=== PATIENT | male | born 2005 | race Caucasian/White ===

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

== ENCOUNTER 2025-04-14 15:37 | Inpatient (IN) | payer MEDICAID, SELFPAY ==
--- NOTE | ~2025-04-14 | XR_ITS ---
EXAMINATION: XR FOOT, RIGHT CLINICAL INFORMATION: pain, injury COMPARISON: None available. TECHNIQUE: AP, lateral, and oblique views of the right foot. FINDINGS: There is a defect in the soft tissues dorsal and medial to the first metatarsal head. There is a bandage overlying this region. There is debris in this region. No definite fracture is identified. Defect extends down to bone at the margin of the MTP joint. No other abnormalities are seen. XR/XR foot RT min 3V IMPRESSION: There is soft tissue defect medial to the first metatarsal head. Defect extends down to the bone and may or may not violate the joint capsule. Electronically signed by: Moses Beyer MD 04/14/2025 04:22 PM EDT
--- NOTE | ~2025-04-14 | XR_ITS ---
CLINICAL HISTORY: pre-op 1 view chest x-ray Comparison: None provided Findings: No consolidation or effusion. Heart size is normal. No acute fracture. IMPRESSION: 1. No acute findings. This document has been electronically signed by: Neha Florez MD on 04/14/2025 19:03:51
--- NOTE | ~2025-04-14 | XR_ITS ---
EXAMINATION: XR ANKLE, CLINICAL INFORMATION: pain, injury COMPARISON: None available. TECHNIQUE: AP, lateral, and mortise views lower extremity joint, ankle. FINDINGS: Ankle mortise is congruent. There is no widening of the syndesmosis. Talar dome is intact. There are no calcaneal enthesophytes. There is a corticated ossification inferior to the lateral malleolus and another inferior to the medial malleolus.. XR/XR ankle RT min 3V IMPRESSION: Unremarkable ankle x-ray. Suspected accessory ossification centers inferior to both malleoli. Electronically signed by: Moess Beyer MD 04/14/2025 04:26 PM EDT
--- NOTE | ~2025-04-14 | XR_ITS ---
EXAMINATION: XR KNEE, RIGHT CLINICAL INFORMATION: pain, injury COMPARISON: None available. TECHNIQUE: Four views of the right knee. FINDINGS: Joint spaces are maintained. There is no joint effusion. There are no degenerative changes. Small rounded metallic foreign body projects in the anterior lateral soft tissues of the proximal lower leg XR/XR knee RT 3V IMPRESSION: Round metallic foreign body in the anterolateral right lower leg. Electronically signed by: Moses Beyer MD 04/14/2025 04:24 PM EDT
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
[2025-04-14 15:42] VITALS: BP 141/94; PULSE 70; TEMP 36.8; O2SAT 98; BMI 14.7
[2025-04-14] MEDS: Lidocaine HCl 1 % MPF 5 ML VIAL 10 ML SUBCUT (17:42)
[2025-04-14 17:44] VITALS: BP 127/63; PULSE 64; RESP 14; TEMP 36.8; O2SAT 97
--- NOTE | 2025-04-14 18:20 | ECG_ITS ---
Test Reason : MED CLEARANCE Blood Pressure : */* mmHG Vent. Rate : 55 BPM Atrial Rate : 55 BPM P-R Int : 144 ms QRS Dur : 90 ms QT Int : 424 ms P-R-T Axes : 51 60 21 degrees QTcB Int : 405 ms Sinus bradycardia with sinus arrhythmia Otherwise normal ECG No previous ECGs available Referred By: Vandana Thompson Electronically Signed By: MARLYN RAMOS MD
[2025-04-14 18:57] VITALS: BP 127/63; PULSE 64; RESP 14; TEMP 36.8; O2SAT 97
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
[2025-04-14 19:16] VITALS: BMI 34.6
--- NOTE | 2025-04-14 19:24 | PHA.MEDREC ---
Addendum entered by Max Person RPh 04/14/25 19:28: Reviewed by [facility] Original Note: Pharmacy Consult ? Medication Reconciliation Pharmacy has completed the medication reconciliation. Patient states he doesn't take any medications.
[2025-04-14 19:37] VITALS: BP 106/49; PULSE 51; RESP 20; TEMP 36.8; O2SAT 99
[2025-04-14 20:00] LABS: MANUAL DIFF FLAG NO
[2025-04-14 20:02] LABS: Hematocrit 44.7 % (42.0-52.0); Hemoglobin 15.7 g/dl (14.0-18.0); Imm Gran Abs Auto 0.05 X10*3/uL (0.00-0.03); Imm Gran Pct Auto 0.4 % (0.0-0.4); Lymphocytes Absolute Auto 2.8 X10*3/uL (1.2-4.9); Mean Corpuscular HGB Conc 35.1 g/dl (31.0-36.0); Mean Corpuscular Hemoglobin 30.0 pg (27.0-33.0); Mean Corpuscular Volume 85.5 fL (80.0-98.0); NRBC Abs Auto 0.000 X10*3/uL (0.0-0.012); NRBC Pct Auto 0.0 /100WBC (0.0-0.2); Platelet Count 207 X10*3/uL (160-400); Red Blood Count 5.23 X10*6/uL (4.60-5.80); White Blood Count 13.7 X10*3/uL (4.8-10.8)
[2025-04-14] MEDS: oxyCODONE HCl Immed Release 5 MG TABLET PO (20:03)
[2025-04-14 20:18] LABS: Alanine Aminotransferase 33 U/L (0-40); Albumin Level 4.6 g/dL (3.5-5.0); Alkaline Phosphatase 59 U/L (39-117); Anion Gap 13 (12-20); Aspartate Amino Transferase 26 U/L (5-37); Blood Urea Nitrogen 6 mg/dL (9-16); Calcium 9.0 mg/dL (8.4-10.2); Carbon Dioxide 27 mmol/L (22-29); Chloride 106 mmol/L (96-108); Creatinine Clr Calc Pharmacy 203.8; Estimated Glomerular Filt Rate > 60; Potassium 3.7 mmol/L (3.3-5.1); Sodium 142 mmol/L (135-145); Total Protein 7.1 g/dL (6.5-8.0)
[2025-04-15] VITALS (11 sets, daily range): BP systolic 91–138; BP diastolic 36–85; PULSE 45–69; RESP 16–18; TEMP 36.2–36.7; O2SAT 96–99
[2025-04-15] MEDS: oxyCODONE HCl Immed Release 5 MG TABLET PO ×3 (00:34→23:00)
[2025-04-15] MEDS: 0.9 % Sodium Chloride Flush 3 ML SYRINGE IVFLUSH ×4 (00:35→20:27)
[2025-04-15 06:49] LABS: MANUAL DIFF FLAG NO
[2025-04-15 06:57] LABS: Hematocrit 45.8 % (42.0-52.0); Hemoglobin 15.2 g/dl (14.0-18.0); Imm Gran Abs Auto 0.05 X10*3/uL (0.00-0.03); Imm Gran Pct Auto 0.4 % (0.0-0.4); Lymphocytes Absolute Auto 3.2 X10*3/uL (1.2-4.9); Mean Corpuscular HGB Conc 33.2 g/dl (31.0-36.0); Mean Corpuscular Hemoglobin 29.3 pg (27.0-33.0); Mean Corpuscular Volume 88.2 fL (80.0-98.0); NRBC Abs Auto 0.000 X10*3/uL (0.0-0.012); NRBC Pct Auto 0.0 /100WBC (0.0-0.2); Platelet Count 181 X10*3/uL (160-400); Red Blood Count 5.19 X10*6/uL (4.60-5.80); White Blood Count 12.0 X10*3/uL (4.8-10.8)
[2025-04-15 07:50] LABS: Anion Gap 11 (12-20); Blood Urea Nitrogen 7 mg/dL (9-16); Calcium 8.7 mg/dL (8.4-10.2); Carbon Dioxide 26 mmol/L (22-29); Chloride 108 mmol/L (96-108); Creatinine Clr Calc Pharmacy 208.8; Estimated Glomerular Filt Rate > 60; Potassium 4.1 mmol/L (3.3-5.1); Sodium 141 mmol/L (135-145)
--- NOTE | 2025-04-15 09:45 | HO.ANESPROP2 ---
Documented by User: Samia Silverio NP 04/15/25 09:50 HPI - Anesthesia Eval Consult details Narrative: 20 yr old male for right foot I&D No recent illness No CP/SOB with moderate activity +Daily marijuana use PMFSH Active Problems Active Problems: All Active Problems (Updated 04/14/25 @ 19:44 by JENN Munoz) Skin loss with exposed bone (Acute) Family History Family history of problems with anesthesia: No Surgical History Surgical History (Updated 04/15/25 @ 14:56 by Kayli Stone RN) History of surgery History of Problems with Anesthesia: No Social History Social History Household Members: Family Housing: House Do you presently have visiting nurse or other home services: No Alcohol intake: never Patient Tobacco Use Status: Never used Tobacco service: No Meds Allergies Allergy/AdvReac Type Severity Reaction Status Date / Time No Known Allergies Allergy Verified 04/14/25 15:46 Active Medications: Current Medications Acetaminophen (Acetaminophen 325 Mg Tablet) 650 mg PO Q6H PRN PRN Reason: Pain, Mild 1-3,fever,headache Last Admin: 04/15/25 00:34 Dose: 650 mg Calcium Carbonate (Calcium Carbonate 750 Mg Tab.Chew) 750 mg PO Q4H PRN PRN Reason: Heartburn Hydromorphone HCl (Hydromorphone Hcl 0.5 Mg/0.5 Ml Syringe) 0.25 mg IVPUSH Q4H PRN; Protocol PRN Reason: Pain, Severe (Pain Scale 7-10) Vancomycin HCl 750 mg/ Sodium (Chloride) 265 mls @ 265 mls/hr IV Q8H SILVERIO Last Infusion: 04/15/25 06:03 Dose: Infused Magnesium Hydroxide (Milk Of Magnesia 30 Ml Oral.Susp) 30 ml PO DAILY PRN PRN Reason: Constipation Melatonin (Melatonin 3 Mg Tablet) 6 mg PO BEDTIME PRN PRN Reason: Insomnia Oxycodone HCl (Oxycodone Hcl Immed Release 5 Mg Tablet) 5 mg PO Q4H PRN PRN Reason: Pain, Moderate(Pain Scale 4-6) Last Admin: 04/15/25 00:34 Dose: 5 mg Pharmacy Consult (Consult Rx Vancomycin Dosing) 1 each MISCELLANE DAILY PRN PRN Reason: Consult order Sodium Chloride (0.9 % Sodium Chloride Flush 3 Ml Syringe) 3 ml IVFLUSH QSHIFT SILVERIO Last Admin: 04/15/25 08:50 Dose: 3 ml Home Medications ?Medication ?Instructions ?Recorded ?Confirmed ?Last Taken ?Type No Known Home Meds 04/14/25 04/14/25 Unknown History Exam Height,Weight and Vital Signs: Height 6 ft 4 in Weight 128.82 kg Last Vital Signs Temp 98.0 F 04/15/25 08:00 Pulse 54 04/15/25 08:00 Resp 18 04/15/25 08:00 BP 110/64 04/15/25 08:00 Pulse Ox 99 04/15/25 08:00 O2 Del Method Room Air 04/15/25 08:00 Pertinent Lab Results Pertinent Lab Results: Laboratory Tests 04/14/25 04/15/25 19:49 05:33 WBC 13.7 H 12.0 H RBC 5.23 5.19 Hgb 15.7 15.2 Hct 44.7 45.8 MCV 85.5 88.2 MCH 30.0 29.3 MCHC 35.1 33.2 RDW 13.1 13.0 Plt Count 207 181 MPV 11.2 12.2 Immature Gran % (Auto) 0.4 0.4 Neut % (Auto) 71.1 60.5 Lymph % (Auto) 20.0 26.8 Ellis % (Auto) 7.6 11.1 H Eos % (Auto) 0.5 0.9 Baso % (Auto) 0.4 0.3 Lymph # (Auto) 2.8 3.2 Ellis # (Auto) 1.0 1.3 H Eos # (Auto) 0.1 0.1 Baso # (Auto) 0.1 0.0 Abs Immat Gran (auto) 0.05 H 0.05 H Absolute Neuts (auto) 9.8 H 7.2 Absolute Nucleated RBC 0.000 0.000 Nucleated RBC % (auto) 0.0 0.0 Sodium 142 141 Potassium 3.7 D 4.1 Chloride 106 108 Carbon Dioxide 27 26 Anion Gap 13 11 L BUN 6 L 7 L Creatinine 0.84 0.82 Estim Creat Clear Calc 203.8 208.8 Estimated GFR > 60 > 60 Random Glucose 84 Fasting Glucose 85 Calcium 9.0 D 8.7 Total Bilirubin 0.6 AST 26 ALT 33 Alkaline Phosphatase 59 Total Protein 7.1 Albumin 4.6 Blood Type A Positive Antibody Screen NEGATIVE Airway Mallampati Class: II TM Dist: >3cm Neck ROM: Full Loose/Missing/Broken Teeth: No Assessment and Plan Final Anesthetic Review Family History of Problems with Anesthesia: No History of Problems with Anesthesia: No Documented by User: Hardeep Haro MD 04/15/25 17:19 [facility] Surgical History Surgical History (Updated 04/15/25 @ 14:56 by Kayli Stone RN) History of surgery Social History Social History Household Members: Family Housing: House Do you presently have visiting nurse or other home services: No Alcohol intake: never Patient Tobacco Use Status: Never used Tobacco service: No Meds Allergies Allergy/AdvReac Type Severity Reaction Status Date / Time No Known Allergies Allergy Verified 04/14/25 15:46 Home Medications ?Medication ?Instructions ?Recorded ?Confirmed ?Last Taken ?Type No Known Home Meds 04/14/25 04/14/25 Unknown History Assessment and Plan Assessment Anesthesia Assessment: Anesthesia Plan Discussed and Chart Reviewed Final Anesthetic Review NPO: Yes ASA Class: I Final Preanesthetic Review: No Changes in Pt Med Stat, Meds/Allgs Chart Reviewed, Consent Obtained/Reviewed and Anes Risks/Benef Reviewed Patient Risk: Low Procedure Risk: Low Anesthetic Plan Anesthetic Plan: GA Disposition: Standard PACU
--- NOTE | 2025-04-15 13:10 | HO.WOUND ---
Wound Consutl: Defer to Orthopedic Surgery Team 20yr old male admitted to [facility] on 04/14/25 - see H&P for detailed history. Wound consult placed for traumatic Right Foot injury. Chart review reveals patient is set for OR today with Orthopedic Surgery team - will defer to their service for topical recommendations. Will follow along for wound care d/c needs. Inpatient wound care nurse will continue to follow.
--- NOTE | 2025-04-15 13:42 | MHC.CM.PN ---
PG LIVES WITH FAMILY IS WORKING AND INDEPENDNTHAS OWN RIDE HOME DC PLAN HOME NO SERVICS
--- NOTE | 2025-04-15 17:24 | MHC.SHP ---
Pre-Procedural Eval Section A - 24 Hr Update-Section A only Date of Service: 04/15/25 The patient is an INPATIENT: Yes Changes since office visit: No Cold of Flu in the past 2 weeks, No New Medical Problems, No Changes in Medication and No Patient answered all questions The patient has been examined within 24 hours of the surgical procedure. The History & Physical has been completed within 30 days and I have reviewed it.: Yes Section B - Complete if H&P > 30 days Chief Complaint: open R first mtp joint Allergies: Allergies Allergy/AdvReac Type Severity Reaction Status Date / Time No Known Allergies Allergy Verified 04/14/25 15:46 Plan I have reviewed the history and physical and performed a pertinent physical examination on my patient. No changes have occurred unless specified. Time Spent With Patient Time: Total time managing care of this patient today ____ minutes.
--- NOTE | 2025-04-15 18:31 | PM.OP ---
Brief Operative Note Date of Service: 04/15/25 Pre-op diagnosis: Right 1st MTP traumatic arthrotomy and extensor tendon laceration Post-op diagnosis: same Procedure: Irrigation 1st MTP Extensor tendon repair Implants: none Surgeon: Luis Antonio Massey MD Anesthesia: GETA Was an Digital Pre Press Operator used for this Procedure?: No Estimated blood loss (mL): 20 IV fluids (mL): 500 Pathology: none sent Condition: stable Disposition: PACU
[2025-04-16 03:20] VITALS: BP 130/79; PULSE 60; RESP 18; TEMP 36.2; O2SAT 99
[2025-04-16] MEDS: oxyCODONE HCl Immed Release 5 MG TABLET PO ×3 (03:34→13:54)
[2025-04-16 06:05] LABS: MANUAL DIFF FLAG NO
[2025-04-16 06:23] LABS: Hematocrit 46.5 % (42.0-52.0); Hemoglobin 15.7 g/dl (14.0-18.0); Imm Gran Abs Auto 0.05 X10*3/uL (0.00-0.03); Imm Gran Pct Auto 0.4 % (0.0-0.4); Lymphocytes Absolute Auto 1.9 X10*3/uL (1.2-4.9); Mean Corpuscular HGB Conc 33.8 g/dl (31.0-36.0); Mean Corpuscular Hemoglobin 29.5 pg (27.0-33.0); Mean Corpuscular Volume 87.2 fL (80.0-98.0); NRBC Abs Auto 0.000 X10*3/uL (0.0-0.012); NRBC Pct Auto 0.0 /100WBC (0.0-0.2); Platelet Count 169 X10*3/uL (160-400); Red Blood Count 5.33 X10*6/uL (4.60-5.80); White Blood Count 11.8 X10*3/uL (4.8-10.8)
[2025-04-16 06:32] LABS: Anion Gap 16 (12-20); Blood Urea Nitrogen 7 mg/dL (9-16); Calcium 8.8 mg/dL (8.4-10.2); Carbon Dioxide 24 mmol/L (22-29); Chloride 105 mmol/L (96-108); Creatinine Clr Calc Pharmacy 228.3; Estimated Glomerular Filt Rate > 60; Potassium 3.6 mmol/L (3.3-5.1); Sodium 141 mmol/L (135-145)
[2025-04-16 07:26] VITALS: BP 125/78; PULSE 52; RESP 18; TEMP 36.8; O2SAT 96
[2025-04-16] MEDS: 0.9 % Sodium Chloride Flush 3 ML SYRINGE IVFLUSH ×3 (08:05→21:51)
--- NOTE | 2025-04-16 09:10 | HO.POSTANES ---
Post Anesthesia Evaluation Post Anesthesia Evaluation Date of Service: 04/16/25 Vital Signs: Vital Signs Temp Pulse Resp BP Pulse Ox O2 Del Method 04/16/25 07:26 98.3 F 52 18 125/78 96 Room Air 04/16/25 03:20 97.1 F 60 18 130/79 99 Room Air 04/15/25 23:15 97.6 F 56 18 129/77 98 Room Air Anesthesia: General Mental Status: Awake Pain Control: Satisfactory Nausea/Vomiting: None Hydration: Adequate Anesthesia-Related Issues: No Anes. Related Issues
--- NOTE | 2025-04-16 13:43 | PM.PNORT ---
Subjective Subjective Date of Service: 04/16/25 Interval history: POD1 s/p right foot irrigation 1st MTP and extensor tendon repair Patient is resting in bed comfortably No overnight events Pain is managed Right foot elevating on pillows No additional complaints Physical Exam Vital Signs: Vital Signs: Last Vital Signs Temp 98.3 F 04/16/25 07:26 Pulse 52 04/16/25 07:26 Resp 18 04/16/25 07:26 BP 125/78 04/16/25 07:26 Pulse Ox 96 04/16/25 07:26 O2 Del Method Room Air 04/16/25 07:26 BMI result Body Mass Index 34.6 Const: General: cooperative, healthy appearing and no acute distress Resp: Effort & Inspection: normal respiratory effort and able to speak in complete sentences Extrem: Other: Right foot splint is c/d/i. Able to move all digits. Sensation reportedly intact with some tingling on the plantar side of the foot near the heel. Capillary refill is brisk. Psych: Appearance: grossly normal Mental Status: mental status grossly normal Attitude: cooperative Procedures Date of Service Date of Service: 04/16/25 Progress Note: A&P Assessment and plan (1) Skin loss with exposed bone: Status: Acute Plan Continue pain mgmnt Keep dressing c/d/i Zhang loosened Wet to dry dressing changes BID -First dressing change to be performed this evening Dispo planning-Pain management and wound care Time Spent With Patient Time: Total time managing care of this patient today ____ minutes. Quality Stroke Does the patient have a stroke diagnosis?: No VTE Prior VTE?: No VTE Risk Level:: Surgical - moderate VTE Device Contraindication: N/A - Device Ordered VTE Drug Contraindication: Treatment Not Indicated
[2025-04-16 15:12] VITALS: BP 123/58; PULSE 51; RESP 16; TEMP 36.4; O2SAT 98
[2025-04-16 19:42] VITALS: BP 132/56; PULSE 72; RESP 18; TEMP 37; O2SAT 96
[2025-04-17 03:04] VITALS: BP 134/75; PULSE 71; RESP 18; TEMP 36.9; O2SAT 97
[2025-04-17 06:29] LABS: MANUAL DIFF FLAG NO
[2025-04-17 06:32] LABS: Hematocrit 43.3 % (42.0-52.0); Hemoglobin 15.3 g/dl (14.0-18.0); Imm Gran Abs Auto 0.04 X10*3/uL (0.00-0.03); Imm Gran Pct Auto 0.4 % (0.0-0.4); Lymphocytes Absolute Auto 2.3 X10*3/uL (1.2-4.9); Mean Corpuscular HGB Conc 35.3 g/dl (31.0-36.0); Mean Corpuscular Hemoglobin 30.2 pg (27.0-33.0); Mean Corpuscular Volume 85.6 fL (80.0-98.0); NRBC Abs Auto 0.000 X10*3/uL (0.0-0.012); NRBC Pct Auto 0.0 /100WBC (0.0-0.2); Platelet Count 184 X10*3/uL (160-400); Red Blood Count 5.06 X10*6/uL (4.60-5.80); White Blood Count 9.2 X10*3/uL (4.8-10.8)
[2025-04-17 06:54] LABS: Anion Gap 13 (12-20); Blood Urea Nitrogen 9 mg/dL (9-16); Calcium 9.4 mg/dL (8.4-10.2); Carbon Dioxide 26 mmol/L (22-29); Chloride 105 mmol/L (96-108); Creatinine Clr Calc Pharmacy 225.3; Estimated Glomerular Filt Rate > 60; Potassium 3.5 mmol/L (3.3-5.1); Sodium 140 mmol/L (135-145)
[2025-04-17 07:40] VITALS: BP 112/62; PULSE 50; RESP 18; TEMP 36.3; O2SAT 98
[2025-04-17] MEDS: 0.9 % Sodium Chloride Flush 3 ML SYRINGE IVFLUSH (08:08)
--- NOTE | 2025-04-17 09:10 | PM.PNORT ---
Subjective Subjective Date of Service: 04/17/25 Interval history: POD2 s/p right foot irrigation 1st MTP and extensor tendon repair Patient is resting in bed comfortably No overnight events Pain is managed Right foot elevating on pillows No additional complaints Physical Exam Vital Signs: Vital Signs: Last Vital Signs Temp 97.4 F 04/17/25 07:40 Pulse 50 04/17/25 07:40 Resp 18 04/17/25 07:40 BP 112/62 04/17/25 07:40 Pulse Ox 98 04/17/25 07:40 O2 Del Method Room Air 04/17/25 07:40 BMI result Body Mass Index 34.6 Const: General: cooperative, healthy appearing and no acute distress Resp: Effort & Inspection: normal respiratory effort and able to speak in complete sentences Extrem: Other: Right foot splint is c/d/i. Able to move all digits. Sensation reportedly intact with some tingling on the plantar side of the foot near the heel. Once dressing is removed, wound/surgery site appears clean and dry, there is good soft tissue coverage over all bones and joints. Sutures in place and intact. No cellulitis, drainage, or other evidence of infection noted. Capillary refill is brisk. Psych: Appearance: grossly normal Mental Status: mental status grossly normal Attitude: cooperative Procedures Date of Service Date of Service: 04/17/25 Progress Note: A&P Assessment and plan (1) Skin loss with exposed bone: Status: Acute Plan Continue pain mgmnt Keep dressing c/d/i Zhang loosened Dressing changed today Wet to dry dressing changes BID Upon discharge, patient will be responsible for b.i.d. wet-to-dry dressing changes -First dressing change to be performed this evening Patient will start on p.o. Keflex upon discharge x2 weeks Dispo planning-Pain management and wound care Time Spent With Patient Time: Total time managing care of this patient today ____ minutes. Quality Stroke Does the patient have a stroke diagnosis?: No VTE Prior VTE?: No VTE Risk Level:: Surgical - moderate VTE Device Contraindication: N/A - Device Ordered VTE Drug Contraindication: Treatment Not Indicated
--- NOTE | 2025-04-17 09:49 | PM.DS ---
DS: Providers Provider Date of Service: 04/17/25 Date of admission: 04/14/25 18:50 Date of discharge: 04/17/25 Primary care physician: [facility] Consults: 04/14/25 18:50 Consult to Case Management Routine Comment: 04/15/25 09:57 Consult to Wound Care Routine Reason for consultation: R foot road rash injury, pending I&D 04/15 DS: Diagnosis Discharge Diagnosis (1) Skin loss with exposed bone: Status: Acute DS: Summary Hospital Course Hospital Course: The patient underwent a successful irrigation and debridement of right 1st MTP joint, as well as right great toe extensor tendon repair, was transferred to PACU and then to the floor to recover. During their stay, their vitals were stable, afebrile at 97.4. Labs were unremarkable. Patient was also placed into a foot splint, this should remain in place whenever he is not doing dressing changes. Patient also received IV antibiotics while in the hospital, and we will be switched to p.o. Keflex 4 times a day upon discharge Patient may weightbear as tolerated on the right foot while wearing postop shoe, should not be weight-bearing without postop shoe Prior to discharge, his dressing was changed, incision clean dry and intact, new dressing applied. Patient should be doing twice daily wet-to-dry dressing changes while at home. If there are any concerns with the wound itself while at home, he should call our office for advice/sooner appointment. No showering. The plan is to be discharged Status at Discharge Cognitive/behavioral status at discharge: Stable for discharge Time Attestation Discharge Coordination Time (in mins): 30 Quality: Safe Use of Opioids Does Pt have an Active Cancer Diagnosis on the Problem List?: No Quality: Stroke Does the patient have a stroke diagnosis?: No Physical Exam Vital Signs: Vital Signs: Last Vital Signs Temp 97.4 F 04/17/25 07:40 Pulse 50 04/17/25 07:40 Resp 18 04/17/25 07:40 BP 112/62 04/17/25 07:40 Pulse Ox 98 04/17/25 07:40 O2 Del Method Room Air 04/17/25 07:40 BMI result Body Mass Index 34.6 Const: General: cooperative, healthy appearing and no acute distress Resp: Effort & Inspection: normal respiratory effort and able to speak in complete sentences Extrem: Other: Right foot splint is c/d/i. Able to move all digits. Sensation reportedly intact with some tingling on the plantar side of the foot near the heel. Once dressing is removed, wound/surgery site appears clean and dry, there is good soft tissue coverage over all bones and joints. Sutures in place and intact. No cellulitis, drainage, or other evidence of infection noted. Capillary refill is brisk. Psych: Appearance: grossly normal Mental Status: mental status grossly normal Attitude: cooperative DS: Data Data Completed and Pending Labs on day of discharge: Laboratory Results - last 24 hr 04/16/25 04/17/25 20:04 05:21 WBC 9.2 RBC 5.06 Hgb 15.3 Hct 43.3 MCV 85.6 MCH 30.2 MCHC 35.3 RDW 12.9 Plt Count 184 MPV 12.0 Immature Gran % (Auto) 0.4 Neut % (Auto) 60.8 Lymph % (Auto) 24.8 [place] % (Auto) 12.2 H Eos % (Auto) 1.4 Baso % (Auto) 0.4 Lymph # (Auto) 2.3 [place] # (Auto) 1.1 Eos # (Auto) 0.1 Baso # (Auto) 0.0 Abs Immat Gran (auto) 0.04 H Absolute Neuts (auto) 5.6 Absolute Nucleated RBC 0.000 Nucleated RBC % (auto) 0.0 Sodium 140 Potassium 3.5 Chloride 105 Carbon Dioxide 26 Anion Gap 13 BUN 9 Creatinine 0.76 Estim Creat Clear Calc 225.3 Estimated GFR > 60 Fasting Glucose 97 Calcium 9.4 D Random Vancomycin 10.5 L Discharge Plan Discharge Anticipated Discharge Date/Time: 04/17/25 09:48 Patient Disposition: Home, Self-Care Discharge Diagnosis: Traumatic arthrotomy of right 1st MTP joint, right great toe extensor tendon laceration Referrals: [facility] [facility] [Primary Care Provider, Medical] - 1 Week Discharge Medications: New acetaminophen 325 mg Tablet 650 mg PO Q6H PRN (Reason: Pain, Mild 1-3,Fever,Headache) 30 Days Qty: 240 0RF oxycodone 5 mg Tablet 5 mg PO Q4H PRN (Reason: Pain, Moderate(Pain Scale 4-6)) 3 Days Qty: 18 0RF Rx Instructions: Partial Fill upon patient request. cephalexin 500 mg capsule 500 mg PO QID 14 Days Qty: 56 0RF Rx Instructions: Please take antibiotic 4 times a day Always taken antibiotics with food No consuming alcohol while taking antibiotics Discharge Orders: Discharge Order (Routine); Ordered 04/17/25 Ordered By: Mal Rojas Activity on Discharge: Use Splints or Immobilizers Stand Alone Forms: Patient Portal Discharge page Print Language: Arabic Care Plan Goals: Restore normal function of right foot Health Concerns: Traumatic arthrotomy of right 1st MTP joint status post I and D Status post right great toe extensor tendon repair Plan of Treatment: Take p.o. Keflex 4 times a day for 2 weeks Always taken antibiotics with food No alcohol while on antibiotic therapy Remain in splint except for during dressing changes Change dressings, wet to dry, twice a day Weight-bearing as tolerated in postop shoe, no weight-bearing without postop shoe Follow-up with [facility] on 04/24/2025 at 09:45 with Tamica Meyers Assessment: Stable for discharge
--- NOTE | 2025-04-17 10:30 | MHC.CM.PN ---
PT TO DC HOME TODAY WITH NO SERVICES VIA PRIVATE TRANSPORT
[2025-04-17 11:26] VITALS: BP 140/69; PULSE 70; RESP 18; TEMP 36.6; O2SAT 96
--- NOTE | 2025-04-17 11:52 | PC.NURSE ---
Pt forgot bedside dressing supplies at bedside. Attempted to call pt at listed number, error messaged received that number was not in service.
--- NOTE | 2025-04-25 13:46 | P.OP_ITS ---
Operative Note Operative Note Date of Service: 04/15/25 Narrative: Date of Service: 04/15/25 Pre-op diagnosis: Right 1st MTP traumatic arthrotomy and extensor tendon laceration Post-op diagnosis: same Procedure: Irrigation 1st MTP Extensor tendon repair Implants: none Surgeon: Luis Antonio Massey MD Anesthesia: GETA Was an Thermodynamics Engineer used for this Procedure?: No Estimated blood loss (mL): 20 IV fluids (mL): 500 Pathology: none sent Condition: stable Disposition: PACU Procedure in detail: Patient was brought to the operating room placed supine on the operative table and prepped and draped in standard sterile fashion. A time-out was go to intubate per psych for procedure were surgeon IV antibiotics per we were administered. I began by examining the wound. He had a transverse open wound with skin loss over the 1st meta tarsal been . This was a clean wound. There was no debris. I explored it and over the anteromedial aspect the metatarsal phalangeal joint was violated. I used a knife to remove debris and explored the joint. It was clean and I irrigated copiously with saline. Once I felt that the wound was closed there was no viable capsular tissue to close I further irrigated the area over the metatarsal head. Once the wound was clean I examined the extensor tendon. This was partially torn with the lateral half intact. The extensor expansion was not repairable but I was able to place 340 Prolene sutures to repair the extensor tendon. This was a 6 strand repair and I felt comfortable that it was the mostly could be done to prevent worsening and hopefully allow this to fully heal. I then performed a small incision at the most lateral and medial aspect of the open wound and was able to bring healthy skin into the central area of skin loss. I had a proximate dime-sized area of subcutaneous tissue and felt that this would closed with simple wound care. The remainder of the wound I was able to cover with delayed primary closure. Prolene suture was used. I then placed a silver dressing over the open wound and a splint with the toe in a extended position. Sterile dressings had been applied prior to splint placement. Patient was then extubated brought to recovery room in stable condition. There were no known complications.
== END 2025-04-17 11:54 | disposition home or self-care (01) | DRG 317 ==
LOC: HO.ED 18:20 → HO.EDOVER 19:03 → HO.S3 04-15 00:57
PROVIDERS: Orthopaedic Surgery; Physician Assistant Medical; Emergency Provider Emergency Medicine Emergency Medical Services
PROC: 0LQV0ZZ Repair Right Foot Tendon, Open Approach (ICD-10-PCS; CPT 28208; principal; 2025-04-15 13:00)
DX: S96.121A Laceration of muscle and tendon of long extensor muscle of toe at ankle and foot level, right foot, initial encounter (principal); S91.301A Unspecified open wound, right foot, initial encounter; W20.8XXA Other cause of strike by thrown, projected or falling object, initial encounter; Z79.899 Other long term (current) drug therapy
CPT/HCPCS: 28208; 36415; 71045; 73562; 73610; 73630; 80048; 80053; 80202; 85025; 86850; 86900; 86901; 93005; 99221; 99285; J1171; J2003; J2704; J2795; J3010; J3374

== ENCOUNTER → 2025-04-14 15:45 | Outpatient (BNV) | payer MEDICAID, SELFPAY | PROVIDERS: Visit Provider Radiology Diagnostic Radiology | DX: S80.851A Superficial foreign body, right lower leg, initial encounter (principal); Z01.810 Encounter for preprocedural cardiovascular examination; M25.571 Pain in right ankle and joints of right foot | CPT/HCPCS: 71045; 73562; 73610; 73630 ==

== ENCOUNTER → 2025-04-14 18:20 | Outpatient (BNV) | payer MEDICAID, SELFPAY | PROVIDERS: Emergency Provider Emergency Medicine Emergency Medical Services; Visit Provider Internal Medicine Cardiovascular Disease | DX: I49.9 Cardiac arrhythmia, unspecified (principal); R00.1 Bradycardia, unspecified | CPT/HCPCS: 93010 ==

== ENCOUNTER → 2025-04-14 18:50 | Outpatient (BNV) | payer MEDICAID, SELFPAY | PROVIDERS: Emergency Provider Emergency Medicine Emergency Medical Services | DX: R29.898 Other symptoms and signs involving the musculoskeletal system (principal) | CPT/HCPCS: 99223 ==

== ENCOUNTER 2025-04-24 09:45 | Outpatient (AMB) | payer MEDICAID, SELFPAY ==
--- NOTE | 2025-04-24 09:58 | A.OFFVIS_ITS ---
Vital Signs 04/24/25 10:00 Height 6 ft 4 in Weight 280 lb BMI 34.1 Intake Visit Reasons: rt irrigation 1st MTP ext. tendon repair 04/15/25 NE Intake Note: Ricardo is a 20 year old male who presents today for a post op appointment status post right irrigation 1st metatarsophalangeal extensor tendon repair 04/15/25 NE. Patient reports he is not having pain at the moment. He is in a post op shoe. Accompanied by: Brother Allergies No Known Allergies Allergy (Verified 04/24/25 10:02) HPI HPI rt irrigation 1st MTP ext. tendon repair 04/15/25 NE: Details: Mr. Asa Arias is a 20-year-old male who presents to the office today status post irrigation of the 1st MTP with extensor tendon repair performed on 04/15/[address] Massey. He reports to the office today in a postop shoe weight-bearing as tolerated with his dressing clean dry and intact. He reports minimal pain. He also reports he has been performing daily dressing changes at home on his own. No additional complaints. [facility] Surgical History (Updated 04/15/25 @ 14:56 by Kayli Stone RN) History of surgery Social History Household Members: Family Housing: House Do you presently have visiting nurse or other home services: No Alcohol intake: never Patient Tobacco Use Status: Never used Tobacco service: No Current occupational status: employed Current occupation: Mental Health Associate/ right hand dominant Review of Systems Const All systems reviewed & are unremarkable except as noted in HPI and below Physical Exam Vital Signs: BMI result Body Mass Index 34.1 Const General: cooperative, healthy appearing and no acute distress Resp Effort & Inspection: normal respiratory effort and able to speak in complete sentences Extrem Other: Right foot: Wound over the 1st MTP is clean dry and intact. 4 suture are intact. No surrounding erythema or drainage. No signs of infection. Psych Appearance: grossly normal Mental Status: mental status grossly normal Attitude: cooperative Assessment & Plan Assessment & Plan (1) Skin loss with exposed bone: Code(s): R29.898 - Other symptoms and signs involving the musculoskeletal system Category: Medical Plan Mr. Asa Arias is a 20-year-old male who presents to the office today status post irrigation of the 1st MTP with extensor tendon repair performed on 04/15/[address] Massey. He reports to the office today in a postop shoe weight-bearing as tolerated with his dressing clean dry and intact. He reports minimal pain. He also reports he has been performing daily dressing changes at home on his own. No additional complaints. The patient's splint and dressing was take down in the office today for a wound check. Sutures are removed. The wound was dressed with Xeroform gauze and Kerlix with an Zhang wrap. We have supplied the patient with gauze Xeroform and Kerlix to perform daily dressing changes. I have sent a prescription for Celebrex 200 mg to be taken p.o. b.i.d. as well as 1% Silvadene to apply a light layer over the wound daily while performing dressing changes. The patient was e ducated on how to perform this while in the office today. He was then placed into a short boot off the shelf. He may weightbear as tolerated He will follow up in 1 week for wound check, sooner if needed. Medications: New celecoxib (Celebrex) 200 mg PO BID 60 caps 0RF 30 days silver sulfadiazine 1% (Silvadene) apply a 1.5 mm thickness 1 appl topical BID PRN 20 grams 0RF wound healing Coding Level of Care Code Global (52098) Diagnoses Skin loss with exposed bone R29.898
[2025-04-24 10:00] VITALS: BMI 34.1
== END 2025-04-24 10:42 | disposition home or self-care (01) ==
LOC: HO.HOS 09:45
PROVIDERS: Visit Provider Physician Assistant
DX: R29.898 Other symptoms and signs involving the musculoskeletal system (principal)
CPT/HCPCS: 99024

== ENCOUNTER → 2025-04-24 09:45 | Outpatient (BNVA) | payer MEDICAID, SELFPAY | PROVIDERS: Visit Provider Physician Assistant | DX: R29.898 Other symptoms and signs involving the musculoskeletal system (principal) | CPT/HCPCS: 99212 ==

== ENCOUNTER 2025-04-29 15:11 | Outpatient (AMB) | payer MEDICAID, SELFPAY ==
--- NOTE | 2025-04-29 15:12 | MHC.OFFVIS ---
Intake Visit Reasons: PO 1 wk F/U RT 1st MTP I&D 04/15/25 NE Intake Note: Ricardo is a 20 year old male who presents today for a post op appointment status post right irrigation 1st metatarsophalangeal extensor tendon repair 04/15/25 NE. Patient reports he is doing well. he is wondering if he could wash the area with water. Accompanied by: Brother Allergies No Known Allergies Allergy (Verified 04/29/25 15:18) HPI HPI PO 1 wk F/U RT 1st MTP I&D 04/15/25 NE: Details: Mr. Symone Arias is a 20-year-old male who presents to the office today for a wound check status post irrigation of the right 1st MTP with extensor tendon repair. At his last appointment on 04/24/2025 sutures are removed and the area was dressed with a clean dressing. He was placed into a short walking boot with instruction to perform daily dressing changes. Patient states that he has been adhering to the treatment plan accordingly. He denies any pain. Overall he is doing well. I did send a prescription for Silvadene to the pharmacy however the patient states that he did not pick this up. [facility] Surgical History (Updated 04/15/25 @ 14:56 by Kayli Stone RN) History of surgery Social History Household Members: Family Housing: House Do you presently have visiting nurse or other home services: No Alcohol intake: never Patient Tobacco Use Status: Never used Tobacco service: No Current occupational status: employed Current occupation: Mental Health Associate/ right hand dominant Review of Systems Const All systems reviewed & are unremarkable except as noted in HPI and below Physical Exam Const General: cooperative, healthy appearing and no acute distress Resp Effort & Inspection: normal respiratory effort and able to speak in complete sentences Extrem Other: Right foot: Wound over the 1st MTP is clean dry and intact. There is healthy granulation tissue filling in. No surrounding erythema or drainage. No signs of infection. Sensation is intact. Able to flex and extend the great toe. Capillary refill is brisk. Psych Appearance: grossly normal Mental Status: mental status grossly normal Attitude: cooperative Assessment & Plan Assessment & Plan (1) Skin loss with exposed bone: Code(s): R29.898 - Other symptoms and signs involving the musculoskeletal system Category: Medical Plan Mr. Symone Arias is a 20-year-old male who presents to the office today for a wound check status post irrigation of the right 1st MTP with extensor tendon repair. At his last appointment on 04/24/2025 sutures are removed and the area was dressed with a clean dressing. He was placed into a short walking boot with instruction to perform daily dressing changes. Patient states that he has been adhering to the treatment plan accordingly. He denies any pain. Overall he is doing well. I did send a prescription for Silvadene to the pharmacy however the patient states that he did not pick this up. While the office today, the area was cleaned with ChloraPrep and a new dressing was applied. Xeroform and gauze followed by an Zhang wrap and then the patient was placed back into the short walking boot. He may continue to weightbear as tolerated. He will continue to perform daily dressing changes in which supplies have been given to the patient. I encouraged the patient to pickling operator the prescription for the Silvadene and I sent to the pharmacy on 04-24-25. I re-educated the patient and how to apply a thin layer over the wound. I would like to see him again in 1 week for evaluation of the wound, sooner if needed. Coding Level of Care Code Global (93039) Diagnoses Skin loss with exposed bone R29.898
== END 2025-04-29 16:33 | disposition home or self-care (01) ==
LOC: HO.HOS 15:11
PROVIDERS: Visit Provider Physician Assistant
DX: R29.898 Other symptoms and signs involving the musculoskeletal system (principal)
CPT/HCPCS: 99024

== ENCOUNTER → 2025-04-29 15:11 | Outpatient (BNVA) | payer MEDICAID, SELFPAY | PROVIDERS: Visit Provider Physician Assistant | DX: Z47.89 Encounter for other orthopedic aftercare (principal); R29.898 Other symptoms and signs involving the musculoskeletal system | CPT/HCPCS: 99212 ==

== ENCOUNTER 2025-05-08 13:21 | Outpatient (AMB) | payer MEDICAID, SELFPAY ==
--- NOTE | 2025-05-08 13:25 | A.OFFVIS_ITS ---
Vital Signs 05/08/25 13:26 Height 6 ft 4 in Weight 280 lb BMI 34.1 Intake Visit Reasons: PO - RT 1st MTP I&D 04/15/25 NE (wound check) Intake Note: Ricardo is a 20 year old male who presents today for a wound check status post RT 1st MTP I&D 04/15/25 NE. At his last visit he was advised to do daily dressing changes and to put a thin layer of Silvadene on the wound. Patient reports doing well. He notices some soreness when he is over doing it with ambulation. Allergies No Known Allergies Allergy (Verified 05/08/25 13:25) HPI HPI PO - RT 1st MTP I&D 04/15/25 NE (wound check): Details: Mr. Asa Arias is a 20-year-old male who presents to the office today for a wound check status post right 1st metatarsophalangeal irrigation and debridement with extensor tendon repair on 04/15/[address] Massey. Patient has been performing daily dressing changes. He denies any pain. He has been walking in the short walking boot. Denies any increasing erythema or drainage. COUNT INCLUDES THE [facility] Surgical History (Updated 04/15/25 @ 14:56 by Kayli Stone RN) History of surgery Social History Household Members: Family Housing: House Do you presently have visiting nurse or other home services: No Alcohol intake: never Patient Tobacco Use Status: Never used Tobacco service: No Current occupational status: employed Current occupation: Mental Health Associate/ right hand dominant Review of Systems Const All systems reviewed & are unremarkable except as noted in HPI and below Physical Exam Vital Signs: BMI result Body Mass Index 34.1 Const General: cooperative, healthy appearing and no acute distress Resp Effort & Inspection: normal respiratory effort and able to speak in complete sentences Extrem Other: Right foot: Wound over the 1st MTP is clean dry and intact. There is healthy granulation tissue continues to fill in. No surrounding erythema or drainage. No signs of infection. Sensation is intact. Able to flex and extend the great toe. Capillary refill is brisk. Psych Appearance: grossly normal Mental Status: mental status grossly normal Attitude: cooperative Assessment & Plan Assessment & Plan (1) Skin loss with exposed bone: Code(s): R29.898 - Other symptoms and signs involving the musculoskeletal system Category: Medical Plan Mr. Asa Arias is a 20-year-old male who presents to the office today for a wound check status post right 1st metatarsophalangeal irrigation and debridement with extensor tendon repair on 04/15/[address] Massey. Patient has been performing daily dressing changes. He denies any pain. He has been walking in the short walking boot. Denies any increasing erythema or drainage. While in the office today, I have switch the patient over to wet-to-dry dressing changes daily. Dressing changes were demonstrated to him in the office today in order for him to perform these at home. He was placed back into the short walking boot. An order for physical therapy has also been placed. The goal is to wean him out of the short walking boot at the 4-6 week postoperative apoorva. Patient did attempt to receive the topical Silvadene cream however this was not covered by his insurance. I would like to see him in 1 week for a wound check, sooner if needed. Coding Level of Care Code Global (72533) Diagnoses Skin loss with exposed bone R29.898
[2025-05-08 13:26] VITALS: BMI 34.1
== END 2025-05-08 13:57 | disposition home or self-care (01) ==
LOC: HO.HOS 13:21
PROVIDERS: Visit Provider Physician Assistant
DX: R29.898 Other symptoms and signs involving the musculoskeletal system (principal)
CPT/HCPCS: 99024

== ENCOUNTER → 2025-05-08 13:21 | Outpatient (BNVA) | payer MEDICAID, SELFPAY | PROVIDERS: Visit Provider Physician Assistant | DX: Z48.00 Encounter for change or removal of nonsurgical wound dressing (principal); R29.898 Other symptoms and signs involving the musculoskeletal system | CPT/HCPCS: 99212 ==

== ENCOUNTER 2025-05-15 10:50 | Outpatient (AMB) | payer MEDICAID, SELFPAY ==
--- NOTE | 2025-05-15 11:06 | A.OFFVIS_ITS ---
Intake Visit Reasons: PO-RT 1st MTP I&D 04/15/25 NE (wound check) Intake Note: Ricardo is a 20 year old male who presents today for a wound check status post RT 1st MTP I&D 04/15/25 NE. At his last visit he was instructed to do daily wet to dry dressing changes. Patient reports he is doing good. He is noticing when he i moving his ankle he feels some soreness near the wound. Allergies No Known Allergies Allergy (Verified 05/15/25 11:11) HPI HPI PO-RT 1st MTP I&D 04/15/25 NE (wound check): Details: Mr. Asa Arias is a 20-year-old male who presents to the office today for a wound check status post right 1st metatarsophalangeal irrigation and debridement with extensor tendon repair on 04/15/[address] Massey. Patient has been performing daily wet-to-dry dressing changes. He denies any pain. He has been walking in the short walking boot. Denies any increasing erythema or drainage. [facility] Surgical History (Updated 04/15/25 @ 14:56 by Kayli Stone RN) History of surgery Social History Household Members: Family Housing: House Do you presently have visiting nurse or other home services: No Alcohol intake: never Patient Tobacco Use Status: Never used Tobacco service: No Current occupational status: employed Current occupation: Mental Health Associate/ right hand dominant Review of Systems Const All systems reviewed & are unremarkable except as noted in HPI and below Physical Exam Const General: cooperative, healthy appearing and no acute distress Resp Effort & Inspection: normal respiratory effort and able to speak in complete sentences Extrem Other: Right foot: Wound over the 1st MTP is clean dry and intact. There is healthy granulation tissue continues to fill in and is smaller in nature from the last evaluation. No surrounding erythema or drainage. No signs of infection. Sensation is intact. Able to flex and extend the great toe. Capillary refill is brisk. Psych Appearance: grossly normal Mental Status: mental status grossly normal Attitude: cooperative Assessment & Plan Assessment & Plan (1) Laceration of right extensor hallucis longus tendon: Code(s): S96.121A - Laceration of muscle and tendon of long extensor muscle of toe at ankle and foot level, right foot, initial encounter Category: Medical (2) Skin loss with exposed bone: Code(s): R29.898 - Other symptoms and signs involving the musculoskeletal system Category: Medical Plan Mr. Asa Arias is a 20-year-old male who presents to the office today for a wound check status post right 1st metatarsophalangeal irrigation and debridement with extensor tendon repair on 04/15/[address] Massey. Patient has been performing daily dressing changes. He denies any pain. He has been walking in the short walking boot. Denies any increasing erythema or drainage. While in the office today, I have instructed the patient to discontinue wet-to-dry dressings and now apply a dry dressing over the wound. I have instructed the patient to come out of the boot and remove the dressing during the day to allow the wound to air. The goal is to allow for healthy eschar tissue to cover the area. He will remain in the boot. Physical therapy order has been placed at the last visit. The patient has not attended any appointments. He was instructed to reach out to physical therapy at today's appointment. He will perform daily dry dressing changes and see me back in 1 week for wound check, sooner if needed. Coding Level of Care Code Global (48138) Diagnoses Laceration of right extensor hallucis longus tendon S96.121A Skin loss with exposed bone R29.898
== END 2025-05-15 11:53 | disposition home or self-care (01) ==
LOC: HO.HOS 10:50
PROVIDERS: Visit Provider Physician Assistant
DX: S96.121A Laceration of muscle and tendon of long extensor muscle of toe at ankle and foot level, right foot, initial encounter (principal); R29.898 Other symptoms and signs involving the musculoskeletal system
CPT/HCPCS: 99024

== ENCOUNTER → 2025-05-15 10:50 | Outpatient (BNVA) | payer MEDICAID, SELFPAY | PROVIDERS: Visit Provider Physician Assistant | DX: S96.121D Laceration of muscle and tendon of long extensor muscle of toe at ankle and foot level, right foot, subsequent encounter (principal); R29.898 Other symptoms and signs involving the musculoskeletal system | CPT/HCPCS: 99212 ==

== ENCOUNTER 2025-05-22 12:58 | Outpatient (AMB) | payer MEDICAID, SELFPAY ==
--- NOTE | 2025-05-22 13:04 | MHC.OFFVIS ---
Intake Visit Reasons: PO-RT 1st MTP I&D 04/15/25 NE (wound check) Intake Note: Ricardo is a 20 year old male who presents today for a wound check status post RT 1st MTP I&D 04/15/25 NE. At his last visit he was instructed to do daily dry dressing changes. Patient reports he is doing better. He is noticing that his incision site is closing up. Allergies No Known Allergies Allergy (Verified 05/22/25 13:09) HPI HPI PO-RT 1st MTP I&D 04/15/25 NE (wound check): Details: Mr. Asa Arias is a 20-year-old male who presents to the office today for a wound check status post right 1st metatarsophalangeal irrigation and debridement with extensor tendon repair on 04/15/[address] Massey. Patient has been performing daily dry dressing changes. He denies any pain. He has been walking in the short walking boot. Denies any increasing erythema or drainage. [facility] Surgical History (Updated 04/15/25 @ 14:56 by Kayli Stone RN) History of surgery Social History Household Members: Family Housing: House Do you presently have visiting nurse or other home services: No Alcohol intake: never Patient Tobacco Use Status: Never used Tobacco service: No Current occupational status: employed Current occupation: Mental Health Associate/ right hand dominant Review of Systems Const All systems reviewed & are unremarkable except as noted in HPI and below Physical Exam Const General: cooperative, healthy appearing and no acute distress Resp Effort & Inspection: normal respiratory effort and able to speak in complete sentences Extrem Other: Right foot: Wound over the 1st MTP is clean dry and intact. There is healthy eschar tissue covers the area of skin loss. No surrounding erythema or drainage. No signs of infection. Sensation is intact. Able to flex and extend the great toe. Capillary refill is brisk. Psych Appearance: grossly normal Mental Status: mental status grossly normal Attitude: cooperative Assessment & Plan Assessment & Plan (1) Laceration of right extensor hallucis longus tendon: Code(s): S96.121A - Laceration of muscle and tendon of long extensor muscle of toe at ankle and foot level, right foot, initial encounter Category: Medical (2) Skin loss with exposed bone: Code(s): R29.898 - Other symptoms and signs involving the musculoskeletal system Category: Medical Plan Mr. Asa Arias is a 20-year-old male who presents to the office today for a wound check status post right 1st metatarsophalangeal irrigation and debridement with extensor tendon repair on 04/15/[address] Massey. Patient has been performing daily dry dressing changes. He denies any pain. He has been walking in the short walking boot. Denies any increasing erythema or drainage. While in the office today, I have instructed the patient to continue dry dressings changes daily. He may discontinue the boot at this time and transition to a supportive walking shoe. Physical therapy order has been placed at the last visit. The patient has not attended any appointments. He was instructed to reach out to physical therapy again at today's appointment. He will perform daily dry dressing changes and see me back in 2 weeks for wound check, sooner if needed. Coding Level of Care Code Global (81192) Diagnoses Laceration of right extensor hallucis longus tendon S96.121A Skin loss with exposed bone R29.898
--- OUTSIDE RECORDS SUMMARY | 2025-05-22 16:08 | XMS_ITS | Data Portability ---
Author Organization [place] [facility] Address [address] [place] [id number] Assessment Encounter Date Assessment Date Assessment LastModified by Organization Details LastModified Time 05/08/2022 05/08/2022 Time On Scene with Patient: 00:37:07 Overview/History : 17 year old male new to with no significant PMH being seen today for day 8 of cough with increased shortness of breath, unable to take deep breath in with wheezing last 2-3 days. Was getting better but then worse. Uses his brother's inhaler with noticeable relief. No fever but chills. Unable to go to work today. Called urgent care but no openings. Had sore throat at onset. Now having runny nose thick drainage. Cough productive light green. No GI symptoms; decreased appetite but drinking well. Not taking anything for cough Exam: Very pleasant non-toxic male in no acute distress but appearing mildly ill with notable nasal congestion and tight cough during visit. Afebrile, VS WNL; clear TMs; maxillary sinus pressure with thicker mucusy nasal drainage. No pharyngeal erythema, exudate or swelling; no cervical adenopathy; Breathsouds with few scattered exp wheezes; S1S2 regular; no edema Vital Signs: 114/64; 75; 18; 97.7; 97% DDx considered, but not limited to: -Sinusitis: due to PE symptoms getting better than worse with pressure -Bronchitis with RAD: considered due to PE -Pneumonia: considered due to cough, chills, but no focal areas of adventitious breathsounds -COVID: considered due to cough Work up/Results: Rapid COVID - will send PCR Plan/Discussion: Sinobronchitis with RAD: -Augmentin 875mg BID x 7 days -Flonase -Neti pot -Increase fluids -Albuterol MDI with spacer -Medrol dose black -Tylenol for discomfort -Work note -PCP follow up -ED precautions Proper Personal Protective Equipment (PPE), including gloves, eye protection and masks were donned and doffed appropriately and all equipment cleaned using approved technique with germicidal disposable wipes prior to and after care of this patient according to [facility]'s infection prevention protocols. christiano Not available 05/08/2022 17:50:10 Plan of Treatment Reminders Order Date Submit Date Provider Last Modified By Organization Details Last Modified Time Details Appointments None recorded. Lab rapid SARS CoV 2 Ag, QL IA, respirato ry specimen 2021 christ[facility], [address] [place], [address], 16:54:35 unlisted lab - covid-19 (novel coronavir us) PCR 2021 [facility] (Centralized Electronic Ordering - All Locations), Patient Can Go To The Location Of Their Choice, [id number] 11:23:26 Referral None recorded. Procedures None recorded. Surgeries None recorded. Imaging None recorded. Medication Orders Medrol (Black) 4 mg tablets in a dose pack 2021 [facility] #[id number], [phone] [place], [address], 16:55:08 amoxicill in 875 mg-potass ium clavulana te 125 mg tablet 2021 [id number], [phone] [place], [address], 16:55:05 Flonase Allergy Relief 50 mcg/actua tion nasal spray,mehran pension 2021 [id number], [phone] [place], [address], 16:55:05 albuterol sulfate HFA 90 mcg/actua tion aerosol inhaler 2021 022 [facility] #[id number], [phone] [place], [address], 16:55:01 Patient TargetsNo targets recorded. Patient Instructions Encounter Date Encounter Id Patient Instructions Last Modified By Organization Details Last Modified Time 05/08/2022 [id number] -You were seen today for cough with shortness of breath -YOur rapid COVID was negative; we are sending it out for PCR testing -We are treating you for sinus infection and asthmatic bronchitis -We sent a prescription for augmentin 1 tablet twice a day for 7 days -Flonase 1 spray each nostril twice a day -Medrol; steroid dose pack: take as packaged directed -Increase your fluids -Neti bottle/nasal lavage -Tylenol for general comfort -Follow up with PCP 5-7 days, sooner if any worsening symptoms or fever burt Not available 05/08/2022 17:49:36 Reason for Referral None Reported. Results Created Date Observation Date Name Description Value Unit Range Abnormal Flag Note LastModifiedBy Organization Detail LastModifiedTime 05/08/2005/09/2022 COVID -19 (NOVE L CORON AVIRU S) PCR covid-19 PCR result (neg) NEGAT MONCHO 2019- novel Coron aviru s (2018nCoV ) not detec chris by real- time RT-PC R. Note: If clini jessee suspi cion for COVID -19 is high, reynold nue to maint ain preca ution s and consi nivia repea t testi ng. Resul t repor chris to the [facility]. To preve nt error s in diagn osis, test resul ts shoul d be inter prete d in the moe xt of clini jessee findi ngs and other labor atory data. Rare polym orphi sms exist that could lead to false -nega tive or false -posi tive resul ts. If resul ts obtai rekha do not match the clini jessee findi ngs, addit ional testi ng shoul d be consi dered . This test has been autho rized by the FDA under an Emerg ency Use Autho riestrella ion (EUA) for use by authlauro martinezi es. Testi ng perfo rmed by real time PCR elham wells [employer] SARS- CoV-2 test. Not Available [facility] (Centralized Electronic Ordering - All Locations) Patient Can Go To The Location Of Their Choice, [id number] 05/09/2022 11:23:26 05/08/2005/09/2022 COVID -19 (NOVE L CORON AVIRU S) PCR covid-19 PCR specimen source NASAL Not Available [facility] (Centralized Electronic Ordering - All Locations) Patient Can Go To The Location Of Their Choice, [id number] 05/09/2022 11:23:26 05/08/2005/08/2022 rapid SARS CoV 2 Ag, QL IA, respi rator y speci men Covid-19 (ref: neg) negati ve Not Available [facility] [address] [place], [address], 05/08/2022 16:43:53 05/08/2005/08/2022 rapid SARS CoV 2 Ag, QL IA, respi rator y speci men Control Visual ized/V alid Not Available [facility] [address] [place], [address], 05/08/2022 16:43:53 Result Notes None recorded. Medical Equipment None Reported. Allergies No known drug allergies Medications Name Sig Start Date Stop Date Status Note LastModified by Organization Details LastModified Time ibuprofen 800 mg tablet TAKE 1 TABLET BY MOUTH THREE TIMES A DAY WITH FOOD 05/08 completed Not Available Not Available Not Available amoxicillin 500 mg tablet TAKE 1 TABLET BY MOUTH TWICE DAILY FOR 10 DAYS 05/08 completed Not Available Not Available Not Available methylpredn isolone 4 mg tablets in a dose pack TAKE 6 TABLETS ON DAY 1 DIRECTED ON PACKAGE AND DECREASE BY 1 TAB EACH DAY FOR A TOTAL OF 6 DAYS active Not Available Not Available No t Available fluticasone propionate 50 mcg/actuati on nasal spray,suspe nsion SPRAY 1 SPRAY BY INTRANASA L ROUTE TWICE A DAY active Not Available Not Available No t Available doxycycline hyclate 100 mg tablet TAKE 1 TABLET BY MOUTH TWICE A DAY FOR 7 DAYS 05/08 completed Not Available Not Available Not Available amoxicillin 875 mg-potassiu m clavulanate 125 mg tablet TAKE 1 TABLET BY MOUTH EVERY 12 HOURS FOR 7 DAYS active Not Available Not Available No t Available Ventolin HFA 90 mcg/actuati on aerosol inhaler INHALE 2 PUFFS EVERY 4 HOURS BY INHALATIO N ROUTE. active Not Available Not Available No t Available melatonin 5 mg tablet TAKE 1 TABLET BY MOUTH AT BEDTIME NEEDED FOR SLEEP 05/08 completed Not Available Not Available Not Available Vitals Date Recorded Heart rate Oxygen saturation Oxygen saturation in Arterial blood by Pulse oximetry Body temperature Respiratory rate Systolic And Diastolic Provider Name and Address Organization Details Last Updated DateTime 75 /min 97 % 97 % 97.7 [degF] 18 /min 114/64 mm[Hg] Not Available [facility] 16:40:08 Social History Question Answer Notes LastModified by [email or web address] Details LastModified Time Tobacco Smoking Status Never Smoker Marilyn Snowden NP [address] [place], [address], [place] [facility] 05/08/2022 16:36:49 Excessive Alcohol Or Drug Use No [email or web address] Information not available 05/08/2022 Does This Patient Have A PCP? Yes [email or web address] Information not available 05/08/2022 Sex: Unknown Functional Status Question Answer Note LastModified by [email or web address] Details LastModified Time Do you use any illicit or recreational drugs? marijuana Information not available 05/08/2022 What is your level of alcohol consumption? None Information not available 05/08/2022 Mental Status None recorded. Family History Relationship Description Onset Age of this Age Resolved Age Notes LastModified by Organization Details LastModified Time Mother Asthma [email or web address] Not available 05/08/2022 16:36:13 Medical History No medical history recorded. Past Encounters Encounter ID Performer Location Encounter Start Date Encounter Closed Date Diagnosis/Indication Diagnosis SNOMED-CT Code Diagnosis ICD10 Code Diagnosis IMO Codes Diagnosis Note [id number] Marilyn Snowden NP [facility] [address] [place] [address] 05/08/2022 16:33:47 05/09/2022 17:48:56 Acute maxillary sinusitis 54908386 J01.00 Acute bron chitis with bronchospasm 18893094 J20.9 Exposure t o communicable disease 092056981 Z20.822 Health Concerns Section Related Observation LastModified by Organization Detai ls LastModified Time None Recorded Concern Status LastModified by Organization Details LastModified Time None Recorded Advance Directives Directive None Recorded Payers Insurance Date Sequence Insurance Name Policy Number Policy Enriquez Covered Member ID Enriquez Member ID Guarantor Name 05/08/2022 1 [place] Bray [id number] Ricardo Bray 05/08/2022 1 *SELF PAY* Ricardo Bray [id number] Ricardo Bray Notes Date Note Type Note Provider Name and Address Organization Details Recorded Time 05/08/2022 text/html 17 year old male new to with no significant PMH being seen today for day 8 of cough with increased shortness of breath, unable to take deep breath in with wheezing last 2-3 days. Was getting better but then worse. Uses his brother's inhaler with noticeable relief. No fever but chills. Unable to go to work today. Called urgent care but no openings. Had sore throat at onset. Now having runny nose thick drainage. Cough productive light green. No GI symptoms; decreased appetite but drinking well. Not taking anything for cough Marilyn Snowden NP [address], [place], [address], [place] [facility] 05/08/2022 17:50:21
== END 2025-05-22 13:27 | disposition home or self-care (01) ==
LOC: HO.HOS 12:58
PROVIDERS: Visit Provider Physician Assistant
DX: S96.121A Laceration of muscle and tendon of long extensor muscle of toe at ankle and foot level, right foot, initial encounter (principal); R29.898 Other symptoms and signs involving the musculoskeletal system
CPT/HCPCS: 99024

== ENCOUNTER → 2025-05-22 12:58 | Outpatient (BNVA) | payer MEDICAID, SELFPAY | PROVIDERS: Visit Provider Physician Assistant | DX: S96.121A Laceration of muscle and tendon of long extensor muscle of toe at ankle and foot level, right foot, initial encounter (principal); X58.XXXA Exposure to other specified factors, initial encounter; Y93.9 Activity, unspecified; Y92.9 Unspecified place or not applicable; Y99.9 Unspecified external cause status; R29.898 Other symptoms and signs involving the musculoskeletal system | CPT/HCPCS: 99212 ==

== ENCOUNTER 2025-06-05 14:11 | Outpatient (AMB) | payer MEDICAID, SELFPAY ==
--- NOTE | 2025-06-05 14:29 | MHC.OFFVIS ---
Vital Signs 06/05/25 14:47 Height 6 ft 4 in Weight 280 lb BMI 34.1 Intake Visit Reasons: PO-RT 1st MTP I&D 04/15/25 NE-Wound check Intake Note: Ricardo is a 20 year old male who presents today for a wound check status post RT 1st MTP I&D 04/15/25 NE. At his last visit he will continue with the dressing changes and to work with physical therapy and transition in to a supported shoe. Patient reports he is doing well. He notices that he is still feeling tender when he is flexing his great toe. Patient stopped wearing his boot about 2 weeks ago. Allergies No Known Allergies Allergy (Verified 06/05/25 14:30) HPI HPI PO-RT 1st MTP I&D 04/15/25 NE-Wound check: Details: Mr. Asa Arias is a 20-year-old male who presents to the office today for a wound check status post right 1st metatarsophalangeal irrigation and debridement with extensor tendon repair on 04/15/[address] Massey. Patient states that he has not been dressing the wound any longer. He denies any pain. He has discontinued the tall walking boot. Denies any increasing erythema or drainage. [facility] Surgical History (Updated 04/15/25 @ 14:56 by Kayli Stone RN) History of surgery Social History Household Members: Family Housing: House Do you presently have visiting nurse or other home services: No Alcohol intake: never Patient Tobacco Use Status: Never used Tobacco service: No Current occupational status: employed Current occupation: Mental Health Associate/ right hand dominant Review of Systems Const All systems reviewed & are unremarkable except as noted in HPI and below Physical Exam Vital Signs: BMI result Body Mass Index 34.1 Const General: cooperative, healthy appearing and no acute distress Resp Effort & Inspection: normal respiratory effort and able to speak in complete sentences Extrem Other: Right foot: Wound over the 1st MTP is clean dry and intact. There is healthy eschar tissue covers the area of skin loss. No surrounding erythema or drainage. No signs of infection. Sensation is intact. Able to flex and extend the great toe. Capillary refill is brisk. Psych Appearance: grossly normal Mental Status: mental status grossly normal Attitude: cooperative Assessment & Plan Assessment & Plan (1) Laceration of right extensor hallucis longus tendon: Code(s): S96.121A - Laceration of muscle and tendon of long extensor muscle of toe at ankle and foot level, right foot, initial encounter Category: Medical (2) Skin loss with exposed bone: Code(s): R29.898 - Other symptoms and signs involving the musculoskeletal system Category: Medical Plan Mr. Asa Arias is a 20-year-old male who presents to the office today for a wound check status post right 1st metatarsophalangeal irrigation and debridement with extensor tendon repair on 04/15/[address] Massey. Patient states that he has not been dressing the wound any longer. He denies any pain. He has discontinued the tall walking boot. Denies any increasing erythema or drainage. While in the office today, the patient has had well healing tissue over the area of skin loss. There is no signs of infection at this time. He has successfully weaned out of the boot into a supportive walking sneaker. He is requesting a return to work note beginning Monday06/09/2025 which has been provided to him. He will follow up with Orthopedics p.r.n., sooner if needed. Coding Level of Care Code Global (10853) Diagnoses Laceration of right extensor hallucis longus tendon S96.121A Skin loss with exposed bone R29.898
[2025-06-05 14:47] VITALS: BMI 34.1
--- OUTSIDE RECORDS SUMMARY | 2025-06-05 17:15 | XMS_ITS | Data Portability ---
Author Organization [place] - [facility] Address [address] [place] [id number] Assessment Encounter Date Assessment Date Assessment LastModified [...] after care of this patient according to [facility]'s infection prevention protocols. christiano Not available 05/08/2022 17:50:10 Plan of Treatment Reminders Order Date Submit Date Provider Last Modified By Organization Details Last Modified Time Details Appointments None recorded. Lab rapid SARS CoV 2 Ag, QL IA, respirato ry specimen 2021 [facility], [address] [place], [address], 16:54:35 unlisted lab - covid-19 (novel coronavir us) PCR 2021 [facility] (Centralized Electronic Ordering - All Locations), Patient Can Go To The Location Of Their Choice, [id number] 11:23:26 Referral None recorded. Procedures None recorded. Surgeries None recorded. Imaging None recorded. Medication Orders Medrol (Black) 4 mg tablets in a dose pack 2021 [facility] #[id number], [phone] [place], [address], 16:55:08 amoxicill in 875 mg-potass ium clavulana te 125 mg tablet 2021 [facility]1130, [phone] [place], [address], 16:55:05 Flonase Allergy Relief 50 mcg/actua tion nasal spray,mehran pension 2021 [facility] #1130, [phone] [place], [address], 16:55:05 albuterol sulfate HFA 90 mcg/actua tion aerosol inhaler 2021 022 [facility] #[id number], [phone] [place], [address], 16:55:01 Patient TargetsNo targets recorded. Patient Instructions Encounter Date Encounter Id Patient Instructions Last Modified By Organization Details Last Modified Time 05/08/2022 [id number] -You were seen today for cough with [...] ng. Resul t repor chris to the [facility]. To preve nt error s [...] rmed by real time PCR elham wells [facility] Alpha0 SARS- CoV-2 test. Not Available [facility] (Centralized Electronic Ordering - All Locations) Patient Can Go To The Location Of Their Choice, [id number] 05/09/2022 11:23:26 05/08/2005/09/2022 COVID -19 (NOVE L CORON AVIRU S) PCR covid-19 PCR specimen source NASAL Not Available [facility] (Centralized Electronic Ordering - All Locations) Patient Can Go To The Location Of Their Choice, [id number] 05/09/2022 11:23:26 05/08/2005/08/2022 rapid SARS CoV 2 Ag, QL IA, respi rator y speci men Covid-19 (ref: neg) negati ve Not Available [facility] [address] [place], [address], 05/08/2022 16:43:53 05/08/2005/08/2022 rapid SARS CoV 2 Ag, QL IA, respi rator y speci men Control Visual ized/V alid Not Available [facility] [address] [place], [address], 05/08/2022 16:43:53 Result Notes None recorded. Medical [...] [degF] 18 /min 114/64 mm[Hg] Not Available [facility] 16:40:08 Social History Question Answer Notes LastModified by [employer] Details LastModified Time Tobacco Smoking Status Never Smoker Marilyn Snowden NP [address] [place], [address], [place] [facility] 05/08/2022 16:36:49 Excessive Alcohol Or Drug Use No jhelliwell Information not available 05/08/2022 Does This Patient Have A PCP? Yes [email or web address] Information not available 05/08/2022 Sex: Unknown Functional Status Question Answer Note LastModified by [employer] Details LastModified Time Do you use any [...] ICD10 Code Diagnosis IMO Codes Diagnosis Note [id number] Marilyn Snowden NP [facility] [address] [place] [address] 05/08/2022 16:33:47 05/09/2022 17:48:56 Acute maxillary sinusitis 31261142 J01.00 Acute bron chitis with bronchospasm 11701767 J20.9 Exposure t o communicable disease 792899267 Z20.822 Health Concerns Section Related Observation LastModified by Organization Detai ls LastModified Time None Recorded Concern Status LastModified by Organization Details LastModified Time None Recorded Advance Directives Directive None Recorded Payers Insurance Date Sequence Insurance Name Policy Number Policy Enriquez Covered Member ID Enriquez Member ID Guarantor Name 05/08/2022 1 [place] [id number] Ricardo Bray [id number] Ricardo Bray 05/08/2022 1 *SELF PAY* Ricardo Bray [id number] Ricardo Bray Notes Date Note Type Note [...] cough Marilyn Snowden NP [address], [place], [address], [place] [facility] 05/08/2022 17:50:21
== END 2025-06-05 15:20 | disposition home or self-care (01) ==
LOC: HO.HOS 14:11
PROVIDERS: Visit Provider Physician Assistant
DX: S96.121A Laceration of muscle and tendon of long extensor muscle of toe at ankle and foot level, right foot, initial encounter (principal); R29.898 Other symptoms and signs involving the musculoskeletal system
CPT/HCPCS: 99024

== ENCOUNTER → 2025-06-05 14:11 | Outpatient (BNVA) | payer MEDICAID, SELFPAY | PROVIDERS: Visit Provider Physician Assistant | DX: S96.121D Laceration of muscle and tendon of long extensor muscle of toe at ankle and foot level, right foot, subsequent encounter (principal); R29.898 Other symptoms and signs involving the musculoskeletal system | CPT/HCPCS: 99212 ==